=== PATIENT | female | born 1980 | race Caucasian/White ===

== ENCOUNTER 2017-06-08 05:17 | Inpatient (IN) | payer OTHER, BC ==
[2017-06-08] VITALS (20 sets, daily range): BP systolic 67–129; BP diastolic 53–77; Ht 175.3 cm; Wt 113.4 kg
[~2017-06-08] VITALS: Ht 175.3 cm; Wt 113.4 kg
[~2017-06-08 05:17] MED LIST: ACE3 PO; CEP500 PO; IBU800 PO
[2017-06-08] MEDS ORDERED: cefOXitin/DEX(*) 2GM/50ML PREM 50 ML IVPB ONE (05:20)
[2017-06-08] MEDS ORDERED: FAMOTIDINE 20 MG/50 ML PREMIX IVPB ONE (05:20)
[2017-06-08] MEDS ORDERED: METOCLOPRAMIDE 10 MG/2 ML SDV IVP ONE (05:20)
[2017-06-08] MEDS ORDERED: PREN-127 PO (06:21)
[2017-06-08 06:36] LABS: PLATELET COUNT, AUTOMATED 202 K/uL (150-450)
[2017-06-08] MEDS: LR(*) 1000 ML BAG 1,000 ML IV SCH ×2 (07:04→07:19)
[2017-06-08] MEDS ORDERED: fentaNYL CITR 100 MCG/2 ML AMP ONE (07:28)
[2017-06-08] MEDS ORDERED: OXYTOCIN 10 UNIT/ML SDV ONE ×2 (07:28)
[2017-06-08] MEDS ORDERED: MORPHINE PF 5 MG/10 ML AMP ONE (07:28)
[2017-06-08] MEDS ORDERED: ONDANSETRON 4 MG/2 ML VIAL ONE (07:29)
[2017-06-08] MEDS ORDERED: KETOROLAC 30 MG/ML VIAL ONE (07:29)
[2017-06-08] MEDS ORDERED: ePHEDrine 25 MG/5 ML DISP.SYR IVP ONE (08:56)
[2017-06-08] MEDS ORDERED: PHENYLEPHRINE/NS/PF 0.4MG/10ML ONE (08:56)
--- NOTE | 2017-06-08 09:17 | History & Physical ---
History of Present Illness Age of Patient: 36 : 4 Para or TPAL: 3 EDC per LMP: Jun 12, 2017 Estimated Gestational Age: 41 Chief Complaint Repeat C/S History of Present Illness Presents for scheduled c/s. History of c/s due to breech her past . This one was thinking of TOLAC but her cervix never really became favorable. She ultimately decided on planned . uncomplicated. Past Medical, Surgical, Family and Obstetric Histories reviewed. Please see [facility] chart. History Allergies: Coded Allergies: No Known Drug Allergies (Unverified , 08/14/11) Med Rec Home Meds Reported Medications Vits W-Ca,Fe,Fa(<1MG) ( VITAMINS) 1 Each Tablet, 1 EACH PO DAILY, TAB 06/08/17 Acetaminophen/Codeine (Tylenol #3 300-30 Mg) 1 Ea Tab, 2 EA PO Q4H Y, #30 TAB 1-2 TABLETS by mouth every 4 hours as needed for pain. Take with food. 08/05/11 Discontinued Reported Medications Cephalexin Monohydrate (Keflex) 500 Mg Cap, 500 MG PO QID, #20 08/14/11 Ibuprofen (Motrin) 800 Mg Tab, 800 MG PO Q8H, #30 TAB Take 1 tablet by mouth every 8 hours. Take with food. 08/05/11 Review of Systems All Systems Reviewed/Normal: Yes, Except as Noted Exam General Exam Vital Signs Vital Signs Date Time Temp Pulse Resp B/P (MAP) Pulse Ox O2 Delivery O2 Flow Rate FiO2 06/08/17 06:30 98.2 92 16 124/77 (93) 95 Room Air General Apperance: Alert/Awake/No Acute Distress Neuro: No Gross deficits Cardiovascular: Regular Rate and Rhythm Respiratory: No Respiratory Distress Abdomen: Soft, Non-Tender, Non-Distended, Gravid - Non-Tender Integumentary: Skin Intact without Lesions or Rash Psychological: Alert & Oriented X3, Appropriate Mood & Affect Fetus FHT Category: I Medical Decision Making Data Points Result Diagram: 06/08/17 0540 VTE Prophylasis: Adult Deep Vein Thrombosis/Pulmonary: No Pharmacological Contraindicati: Pt at Low Risk for VTE Mechanical Contraindications: Pt at Low Risk for VTE Assessment and Plan [employer]FFIC [employer]ER CABLE Plan: Routine Post-Op Care Problems: (1) Previous section Assessment & Plan: Planned repeat. Reviewed surgery and questions answered. BOSTON DAVIS MD Jun 08, 2017 09:17
[2017-06-08] MEDS ORDERED: OXYTOCIN 30 UNIT/D5LR 500 ML 500 ML IV PRN (09:24)
[2017-06-08] MEDS ORDERED: FAMOTIDINE(*) 20MG/50ML PREMIX 50 ML IVPB PRN (09:24)
--- NOTE | 2017-06-08 09:24 | Post Operative Note ---
Operative Note - [employer] Operative Day Date: Jun 08, 2017 Time: 09:17 Physicians Surgeon: Nahomi Anesthesia: Spinal Diagnosis Pre-Op Diagnosis: Previous c/s TIUP Post-Op Diagnosis: same Procedure Findings: vtx Apgars 9,9 wt 3534gms Procedure(s): RLTCS Specimen Removed:(Maybe N/A): dict #[id number] Complications: none Fluids Fluids: 2500 Estimated Blood Loss: 500 Dictated Date OP Note Dictated: Jun 08, 2017 Time OP Note Dictated: 09:19 Copies to: BOSTON DAVIS MD, TRAVIS MD Jun 08, 2017 09:24
[2017-06-08] MEDS ORDERED: METOCLOPRAMIDE 10 MG/2 ML SDV IVP PRN (09:25)
[2017-06-08] MEDS ORDERED: PROMETHAZINE 25 MG/ML 1 ML AMP IVP PRN (09:25)
[2017-06-08] MEDS ORDERED: FLUSH 10 ML SYR IVP PRN (09:25)
[2017-06-08] MEDS ORDERED: LANOLIN OINT 7 GM TUBE TP PRN (09:25)
[2017-06-08] MEDS ORDERED: ONDANSETRON 4 MG/2 ML VIAL IVP PRN (09:25)
[2017-06-08] MEDS ORDERED: diphenhydrAMINE 25 MG CAP PO PRN (09:50)
[2017-06-08] MEDS ORDERED: NALOXONE HCL 0.4 MG/ML VIAL IVP PRN (09:50)
--- NOTE | 2017-06-08 09:50 | Anesthesia OB Pre-Anes Eval ---
History of Present Illness Anesthesia Start Date: Jun 08, 2017 Anesthesia Start Time: 07:35 OB Anesthesia Diagnosis: repeat c/section Current Complication: obesity Complications: None known EDC: Jun 12, 2017 : 4 Para: 3 Vital Signs: Vital Signs Date Time Temp Pulse Resp B/P (MAP) Pulse Ox O2 Delivery O2 Flow Rate FiO2 06/08/17 09:29 97.6 24 101/64 (76) 92 Room Air 06/08/17 09:24 86 Pain Ratin Heart Tones: WNL Result Diagram: 06/08/17 0540 Height (Inches): 69.00 Weight (Pounds): 250 BMI Calculated: 36.91 Past Medical History Medical History: no pertinent history Surgical History: appendectomy, Previous Anesthesia: general, epidural Attended Childbirth Classes?: No Hx Anesthesia Reactions: No Hx Family Anesthesia Reaction: No Home Meds Reported Medications Vits W-Ca,Fe,Fa(<1MG) ( VITAMINS) 1 Each Tablet, 1 EACH PO DAILY, TAB 06/08/17 Acetaminophen/Codeine (Tylenol #3 300-30 Mg) 1 Ea Tab, 2 EA PO Q4H Y, #30 TAB 1-2 TABLETS by mouth every 4 hours as needed for pain. Take with food. 08/05/11 Discontinued Reported Medications Cephalexin Monohydrate (Keflex) 500 Mg Cap, 500 MG PO QID, #20 08/14/11 Ibuprofen (Motrin) 800 Mg Tab, 800 MG PO Q8H, #30 TAB Take 1 tablet by mouth every 8 hours. Take with food. 08/05/11 Allergies: Coded Allergies: No Known Drug Allergies (Unverified , 08/14/11) Anesthesia OB ROS Neurological: No migraines/headaches, No seizures, No neuropathy Eyes ROS: contacts in Contacts Statement: Patient agrees to continued use of contacts if general anesthesia is required. ENT: Denies Tooth caps, Denies Loose teeth, Denies Chipped teeth, Denies Dentures, Denies Bridges, Denies Retainers, Denies Veneers, Denies Implants, Denies Tongue ring, Other Pulmonary: No asthma, No smoker (pks/day/yrs) Airway Class: ll Cardiovascular ROS: No edema, No arrhythmia GI ROS: clear liquids Last Solids Date: Jun 07, 2017 Last Solids Time: 17:00 ROS: No Herpes, No STD(s), No Liver Disease, No Renal Disease Endocrine ROS: No diabetes, No gestational diabetes, No thyroid disorder Musculoskeletal ROS: No low back pain, No low back injury, No scoliosis ASA Classification: 2 Assessment and Plan Anesthesia Plan: SAB Assessment Past Medical, Surgical, Family and Obstetric Histories reviewed. Please see [facility] [place] chart. Spinal block risks and benefits explained to patient's satisfaction. General anesthesia risks and benefits explained to patient's satisfaction. Questions invited, none asked. Anesthesia Stop Day: Jun 08, 2017 Anesthesia Stop Time: 09:20 ROMMEL YANEZ CRNA Jun 08, 2017 09:50
[2017-06-08] MEDS: DLR(*) 1000 ML BAG 1,000 ML IV PRN ×2 (11:15→18:00)
--- NOTE | 2017-06-08 12:16 | OPERATIVE REPORT 1 ---
EVENT DATE: June 08, 2017 SURGEON: Anibal Comer MD ANESTHESIA: Spinal, Carmella Navarrete CRNA PREOPERATIVE DIAGNOSES 1. Previous section x 1. 2. Term intrauterine at 39 weeks. POSTOPERATIVE DIAGNOSES 1. Previous section x 1. 2. Term intrauterine at 39 weeks. PROCEDURE PERFORMED Repeat low transverse section via Pfannenstiel skin incision. ESTIMATED BLOOD LOSS 500 mL. FLUIDS 2500 mL IV crystalloid. URINE OUTPUT 50 mL. FINDINGS Female , cephalic left occiput anterior position. Apgars 9 and 9. Weight 3534 grams. PROCEDURE IN DETAIL The patient was brought to the operating room. Spinal anesthetic was placed. She was placed in the dorsal supine position with a leftward tilt and prepped and draped in the usual sterile fashion. A Pfannenstiel skin incision was then made and carried through to the underlying rectus fascia. This was nicked in the midline and extended laterally with Yen scissors. The rectus muscles were dissected off using sharp dissection and with the Bovie. Rectus muscles were in the midline. The peritoneum was entered sharply with Metzenbaum scissors. The incision was extended superiorly and inferiorly, taking care to avoid injury to the underlying bladder. It was put on lateral stretch. Bladder blade was inserted, exposing the lower uterine segment of the uterus. Vesicouterine peritoneum was entered sharply and extended laterally with Metzenbaum scissors. This ultimately exposed the lower uterine segment of the uterus. It received a low transverse incision with a scalpel and carried through to the intra-amniotic space. There was clear fluid upon amniotomy. It was put on lateral stretch. A hand was inserted. The 's head was elevated to the incision and fundal pressure was applied. 's head delivered atraumatically. Mouth and nose were bulb suctioned. Further fundal pressure effected delivery of the anterior and the posterior shoulder, and the remainder of the followed without difficulty. Mouth and nose were again bulb suctioned. The cord was clamped, cut, and the was passed to the waiting resuscitation team. Cord sample was obtained. The placenta was delivered manually. Uterus was exteriorized and cleared of all clots and debris. Luong clamps were placed for hemostasis while the uterine repair was performed with a #1 Monocryl and a running locking stitch. Second suture of the same type was used to imbricate the first layer, completing a two-layer closure. This was hemostatic upon completion. Posterior cul-de-sac was irrigated, swept clear of clots and debris. Uterus was returned to the abdomen , and bilateral pelvic gutters were irrigated and swept clear of clots and debris. The parietal peritoneum was repaired using a 3-0 Vicryl in a running non-locking stitch. Rectus muscles were reapproximated in the midline with the same stitch. Capillary bleeders were cauterized. Muscle bellies were irrigated and blotted dry. The rectus fascia was repaired using an #0-Vicryl in a running non-locking stitch. Subcuticular space was then irrigated and swept clear of clots and debris. Cautery was applied for hemostasis. Subcuticular space was closed with a 3-0 Vicryl Plus in a running non- locking stitch. Skin was closed with a 4-0 Monocryl simple subdermal stitch and covered with Dermabond skin adhesive. She tolerated the procedure well. Sponge, lap, needle and instrument counts were all correct x 3. She was taken to recovery in stable condition. ALLYSON
[2017-06-08] MEDS: NALBUPHINE HCL 10 MG/ML AMP IVP PRN ×2 (12:27→15:16)
[2017-06-08] MEDS: SIMETHICONE 80 MG CHEW CHEW SCH ×3 (13:30→20:08)
[2017-06-08] MEDS: KETOROLAC 30 MG/ML VIAL IVP SCH ×2 (13:54→20:07)
[2017-06-08] MEDS: FAMOTIDINE 20 MG TAB PO SCH (20:08)
[2017-06-08] MEDS: DOCUSATE CALCIUM 240 MG CAP PO SCH (20:08)
[2017-06-09] MEDS: KETOROLAC 30 MG/ML VIAL IVP SCH (02:06)
[2017-06-09 04:30] VITALS: BP 111/73
--- NOTE | 2017-06-09 07:18 | OB/GYN Progress Note ---
OB Subjective Progress Notes Subjective Pain controlled, Tolerating diet and activity. Baby . Normal lochia. GI: POS Flatus, NEG Nausea, NEG Vomiting Pain: Mild OB Objective Physical Exam Vital Signs Date Time Temp Pulse Resp B/P (MAP) Pulse Ox O2 Delivery O2 Flow Rate FiO2 06/09/17 04:30 97.9 71 16 111/73 (86) 94 Room Air General Appearance: Alert/Awake/No Acute Distress Neurological: No Gross deficits Cardiovascular: Regular Rate and Rhythm Respiratory: No Respiratory Distress, Clear to Auscultation Abdomen: Fundus Firm Incision: Clean, Dry, Intact, Dermabond Extremities: No Edema Integumentary: Skin Intact without Lesions or Rash Psychological: Alert & Oriented X3, Appropriate Mood & Affect Result Diagram: 06/08/17 0540 Assessment and Plan Problems: (1) Previous section (2) care following delivery Assessment & Plan: Pain controlled, Tolerating diet and activity. Baby . Normal lochia. EDIE MEADE MD Jun 09, 2017 07:18
[2017-06-09 07:30] VITALS: BP 105/63
[2017-06-09] MEDS: FAMOTIDINE 20 MG TAB PO SCH ×2 (07:49→20:36)
[2017-06-09 07:50] LABS: PLATELET COUNT, AUTOMATED 143 K/uL (150-450)
[2017-06-09] MEDS: DOCUSATE CALCIUM 240 MG CAP PO SCH ×2 (07:50→20:36)
[2017-06-09] MEDS: SIMETHICONE 80 MG CHEW CHEW SCH ×4 (07:50→20:36)
[2017-06-09] MEDS: IBUPROFEN 800 MG TAB PO SCH ×3 (07:50→22:49)
--- NOTE | 2017-06-09 08:16 | OB/GYN Progress Note ---
OB Subjective Progress Notes Subjective Doing well. Pain controlled and martinez and IV out. Has not ambulated yet. GI: NEG Nausea : Voiding Well Pain: Mild OB Objective Physical Exam Vital Signs Date Time Temp Pulse Resp B/P (MAP) Pulse Ox O2 Delivery O2 Flow Rate FiO2 06/09/17 04:30 97.9 71 16 111/73 (86) 94 Room Air General Appearance: Alert/Awake/No Acute Distress Neurological: No Gross deficits Cardiovascular: Normal Rhythm & Peripheral Pulses, Regular Rate and Rhythm Respiratory: No Respiratory Distress, Clear to Auscultation Abdomen: Soft, Non-Tender, Non-Distended, Fundus Firm Incision: Clean, Dry, Intact, Dermabond Extremities: No Edema Integumentary: Skin Intact without Lesions or Rash Psychological: Alert & Oriented X3, Appropriate Mood & Affect Result Diagram: 06/09/17 0745 Assessment and Plan [facility] Plan: Routine Post-Op Care, Discharge Home Tomorrow Problems: (1) Previous section (2) care following delivery BOSTON DAVIS MD Jun 09, 2017 08:16
[2017-06-09] MEDS ORDERED: IBUP800T37 PO (08:18)
[2017-06-09] MEDS ORDERED: LOR5/325 PO (08:18)
--- NOTE | 2017-06-09 08:21 | OB/GYN Discharge Summary ---
Discharge Summary Reason for Hosp/Final Diag: (1) Previous section (2) care following delivery Lates Vital Signs Vital Signs Date Time Temp Pulse Resp B/P (MAP) Pulse Ox O2 Delivery O2 Flow Rate FiO2 06/09/17 04:30 97.9 71 16 111/73 (86) 94 Room Air Weight (Pounds): 250 Result Diagram: 06/09/17 0745 Condition: Improved Discharge: Home, Self Prison Meds Active Scripts Hydrocodone Bit/Acetaminophen (HYDROCODON-ACETAMINOPHEN 5-325) 1 Each Tablet, 1- 2 EACH PO Q4H Y for PAIN, #30 TAB 0 Refills Prov:ANIBAL COMER MD 06/09/17 Reported Medications Vits W-Ca,Fe,Fa(<1MG) ( VITAMINS) 1 Each Tablet, 1 EACH PO DAILY, TAB 06/08/17 Acetaminophen/Codeine (Tylenol #3 300-30 Mg) 1 Ea Tab, 2 EA PO Q4H Y, #30 TAB 1-2 TABLETS by mouth every 4 hours as needed for pain. Take with food. 08/05/11 Discontinued Reported Medications Cephalexin Monohydrate (Keflex) 500 Mg Cap, 500 MG PO QID, #20 08/14/11 Ibuprofen (Motrin) 800 Mg Tab, 800 MG PO Q8H, #30 TAB Take 1 tablet by mouth every 8 hours. Take with food. 08/05/11 Follow up Referrals: DESIGN TECH DESIGN TECH - In Two Weeks @ [facility] with Anibal Comer Md Follow up with: Dr. Comer [phone] Follow up in: 2 wks PO Discharge Diet: As Tolerates Discharge Activity: As Tolerates, No Heavy Lifting x 6 wks, No Heavy Lifting > 10lb, Pelvic Rest Copies to: ANIBAL COMER MD, TRAVIS MD Jun 09, 2017 08:19
[2017-06-09] MEDS ORDERED: INFLUENZA VIRUS VAC 0.5 ML SYR IM ONLY ONE (09:25)
[2017-06-09] MEDS: APAP/HYDROCODONE 325/5 TAB PO PRN ×3 (11:22→19:37)
[2017-06-09 11:55] VITALS: BP 96/53
--- NOTE | 2017-06-09 14:34 | Anesthesia Post Eval Note ---
Anesthesia Post Eval Note Vital Signs Date Time Temp Pulse Resp B/P (MAP) Pulse Ox O2 Delivery O2 Flow Rate FiO2 06/09/17 11:55 98.4 77 18 96/53 (67) 96 Room Air Pt able to participate in Eval: Yes Cardiovascular Status: Satisfactory Respiratory Status: Satisfactory Pain Managment: Satisfactory PO Nausea/Vomiting: Satisfactory Temperature Management: Satisfactory Mental Status: Satisfactory, Alert, Oriented X3 Post-Op Hydration Status: Satisfactory, Tolerating PO Well, Voiding w/o Difficulty Anesthesia Type: SAB Anesthesia Tolerance: Tolerated procedure well without apparent anesthetic complications. LP site clear, no redness or edema. Denies headache or any residual paresthesia. Vital Signs Stable, Patient comfortable and condition stable. ROMMEL YANEZ CRNA Jun 09, 2017 14:34
[2017-06-09 19:30] VITALS: BP 119/70
--- NOTE | 2017-06-10 07:15 | OB/GYN Progress Note ---
OB Subjective Progress Notes Subjective Pain controlled, Tolerating diet and activity. Baby . Normal lochia. GI: POS Flatus, NEG Nausea, NEG Vomiting : Voiding Well Pain: Mild OB Objective Physical Exam Vital Signs Date Time Temp Pulse Resp B/P (MAP) Pulse Ox O2 Delivery O2 Flow Rate FiO2 06/09/17 23:00 17 Room Air 06/09/17 19:40 98.7 06/09/17 19:30 79 119/70 (86) 95 General Appearance: Alert/Awake/No Acute Distress Neurological: No Gross deficits Cardiovascular: Normal Rhythm & Peripheral Pulses, Regular Rate and Rhythm Respiratory: No Respiratory Distress, Clear to Auscultation Abdomen: Soft, Non-Tender, Non-Distended, Bowel Sounds Present, Fundus Firm Incision: Clean, Dry, Intact, Dermabond Extremities: No Edema Integumentary: Skin Intact without Lesions or Rash Psychological: Alert & Oriented X3, Appropriate Mood & Affect Result Diagram: 06/09/17 0745 Assessment and Plan Problems: (1) Previous section (2) care following delivery Assessment & Plan: Pain controlled, Tolerating diet and activity. Baby . Normal lochia. EDIE MEADE MD Jun 10, 2017 07:15
[2017-06-10] MEDS: FAMOTIDINE 20 MG TAB PO SCH (08:18)
[2017-06-10] MEDS: DOCUSATE CALCIUM 240 MG CAP PO SCH (08:18)
[2017-06-10] MEDS: SIMETHICONE 80 MG CHEW CHEW SCH (08:18)
[2017-06-10] MEDS: IBUPROFEN 800 MG TAB PO SCH (08:18)
[2017-06-10 08:30] VITALS: BP 109/77
== END 2017-06-10 11:55 | disposition home or self-care (01) | DRG 766 ==
LOC: OB 05:17
PROVIDERS: ADMIT Obstetrics & Gynecology; ATTEND Obstetrics & Gynecology
PROC: 10D00Z1 Extraction of Products of Conception, Low, Open Approach (ICD-10-PCS; principal; 2017-06-08 07:30)
DX: O34.211 Maternal care for low transverse scar from previous cesarean delivery (principal); O99.214 Obesity complicating childbirth; E66.9 Obesity, unspecified; Z68.36 Body mass index [BMI] 36.0-36.9, adult; Z3A.39 39 weeks gestation of pregnancy; Z37.0 Single live birth
CPT/HCPCS: 36415; 59025; 85025; 86850; 86900; 86901; J0694; J1885; J2270; J2300; J2370; J2405; J2590; J2765; J3010; J3490; J7120

== ENCOUNTER 2017-06-16 22:33 | Emergency (ER) | payer OTHER, BC ==
[2017-06-08 06:30] VITALS: Wt 113.4 kg
[~2017-06-16 22:33] MED LIST changes: +IBUP800T37 PO; +LOR5/325 PO; +PREN-127 PO
--- NOTE | 2017-06-16 22:45 | ER Report ---
History and Physical Time Seen By MD: 22:44 Hx. of Stated Complaint: SOB WHEN LAYING DOWN. FEELS BETTER WHEN SITTING OR STANDING HPI/ROS CHIEF COMPLAINT: Difficulty breathing when lying supine HISTORY OF PRESENT ILLNESS: 36-year-old female who is one week post delivery of her 2nd child. She states with this . She's had more edema than she had with her 1st . It is not resolved. Now she is having trouble laying supine. She notes she has difficulty breathing and orthopnea. She feels her veins in her neck or distended. She states she is unable to sleep because she short of breath. She notes no fever. She's had no productive cough. She's had leg swelling throughout her . She notes no calf tenderness. Patient states she is breast-feeding. REVIEW OF SYSTEMS: Respiratory: As above Cardiovascular: No chest pain, no palpitations. Gastrointestinal: No vomiting, no abdominal pain. Musculoskeletal: No back pain. Allergies: Coded Allergies: No Known Drug Allergies (Unverified , 06/16/17) Home Meds Active Scripts Hydrochlorothiazide (HYDROCHLOROTHIAZIDE) 12.5 Mg Tablet, 1 TAB PO QDAY Y for leg swelling, #30 TAB Prov:NAVA MCINTYRE DO 06/17/17 Ibuprofen (IBUPROFEN) 800 Mg Tablet, 800 MG PO Q8H Y for PAIN, #30 TAB 0 Refills Prov:BOSTON DAVIS MD 06/09/17 Hydrocodone Bit/Acetaminophen (HYDROCODON-ACETAMINOPHEN 5-325) 1 Each Tablet, 1- 2 EACH PO Q4H Y for PAIN, #30 TAB 0 Refills Prov:BOSTON DAVIS MD 06/09/17 Reported Medications Vits W-Ca,Fe,Fa(<1MG) ( VITAMINS) 1 Each Tablet, 1 EACH PO DAILY, TAB 06/08/17 Acetaminophen/Codeine (Tylenol #3 300-30 Mg) 1 Ea Tab, 2 EA PO Q4H Y, #30 TAB 1-2 TABLETS by mouth every 4 hours as needed for pain. Take with food. 08/05/11 Past Medical/Surgical History Recent delivery Reviewed Nurses Notes: Yes Old Medical Records Reviewed: Yes Hx Smoking: No Smoking Status: Never Smoker Hx Substance Use Disorder: No Hx Alcohol Use: No Constitutional Vital Sign - Last 24 Hours 06/16/17 06/16/17 06/16/17/8/18 22:39 22:40 22:48 23:00 Temp 98.2 Pulse 54 53 Resp 18 B/P (MAP) 149/94 149/94 (112) 146/80 (102) Pulse Ox 97 96 O2 Delivery Room Air 06/16/17 06/16/17 06/16/17 06/17/17 23:18 23:33 23:48 00:02 Pulse 50 52 50 Resp 8 22 B/P (MAP) 137/86 (103) Pulse Ox 94 95 96 06/17/17 06/17/17 06/17/17 06/17/17 00:03 00:18 00:23 00:38 Pulse 49 62 75 ??? Resp 18 15 20 Pulse Ox 95 95 93 06/17/17 06/17/17 06/17/17 06/17/17 00:53 00:54 00:56 01:00 Pulse ??? B/P (MAP) 149/91 (110) 133/78 (96) 132/77 (95) 06/17/17 06/17/17 06/17/17 01:08 01:23 01:30 Pulse ? B/P (MAP) 151/89 (109) Physical Exam Vital signs stable, afebrile, pulse ox normal General Appearance: The patient is alert, has no immediate need for airway protection and no current signs of toxicity. No acute distress HEENT: Pupils equal and round no injection. TMs normal, oropharynx without redness or exudate, mucous. Membranes are moist Respiratory: Chest is non tender, lungs are clear to auscultation. No wheezing or rails Cardiac: regular rate and rhythm Gastrointestinal: Abdomen is soft and non tender, no masses, bowel sounds normal. Musculoskeletal: Neck: Neck is supple and non tender. No lymphadenopathy Extremities have full range of motion and are non tender. 2+ edema bilaterally Skin: No rashes or lesions. DIFFERENTIAL DIAGNOSIS: After history and physical exam differential diagnosis was considered for shortness of breath including but not limited to pulmonary infectious process, COPD, asthma, pulmonary embolus and congestive heart failure. Medical Decision Making Data Points Result Diagram: 06/16/17 1492 06/16/17 2332 Laboratory Hematology Test 06/16/17 23:32 06/17/17 00:57 Red Blood Count 3.97 M/uL (4.17-5.56) Mean Corpuscular Volume 88.5 fL (80.0-96.0) Mean Corpuscular Hemoglobin 29.9 pg (26.0-33.0) Mean Corpuscular Hemoglobin Concent 33.8 g/dL (32.0-36.0) Red Cell Distribution Width 13.9 % (11.5-14.5) Mean Platelet Volume 7.6 fL (7.2-11.1) Neutrophils (%) (Auto) 73.1 % (39.4-72.5) Lymphocytes (%) (Auto) 14.8 % (17.6-49.6) Monocytes (%) (Auto) 8.5 % (4.1-12.4) Eosinophils (%) (Auto) 2.7 % (0.4-6.7) Basophils (%) (Auto) 0.9 % (0.3-1.4) Nucleated RBC Relative Count (auto) 0.0 /100WBC Neutrophils # (Auto) 6.1 K/uL (2.0-7.4) Lymphocytes # (Auto) 1.2 K/uL (1.3-3.6) Monocytes # (Auto) 0.7 K/uL (0.3-1.0) Eosinophils # (Auto) 0.2 K/uL (0.0-0.5) Basophils # (Auto) 0.1 K/uL (0.0-0.1) Nucleated RBC Absolute Count (auto) 0.00 K/uL D-Dimer Quantitative (PE/DVT) 14.01 ug/ml (0-0.50) Sodium Level 140 mmol/L (137-145) Potassium Level 3.8 mmol/L (3.5-5.0) Chloride Level 106 mmol/L (98-107) Carbon Dioxide Level 22 mmol/L (22-31) Blood Urea Nitrogen 16 mg/dl (7-18) Creatinine 0.90 mg/dl (0.52-1.04) Glomerular Filtration Rate Calc > 60.0 Random Glucose 91 mg/dl (75-110) Calcium Level 9.0 mg/dl (8.4-10.2) Total Bilirubin 0.3 mg/dl (0.2-1.3) Aspartate Amino Transf (AST/SGOT) 13 U/L (0-35) Alanine Aminotransferase (ALT/SGPT) 55 U/L (0-56) Alkaline Phosphatase 88 U/L (0-126) Troponin I < 0.012 ng/ml B-Type Natriuretic Peptide 454 pg/ml (0-100) Total Protein 6.5 gm/dl (6.3-8.2) Albumin 3.2 g/dl (3.5-5.0) Urine Color Straw Urine Clarity Clear Urine pH 6.0 pH (4.8-9.5) Urine Specific [place] 1.012 Urine Protein Negative mg/dL (NEGATIVE) Urine Glucose (UA) Negative mg/dL (NEGATIVE) Urine Ketones Negative mg/dL (NEGATIVE) Urine Blood Moderate (NEGATIVE) Urine Nitrite Negative (NEGATIVE) Urine Bilirubin Negative (NEGATIVE) Urine Urobilinogen Negative mg/dL (0.2-1.9) Urine Leukocyte Esterase Negative (NEGATIVE) Urine RBC None /HPF (0-2/HPF) Urine WBC 2 /HPF (0-5/HPF) Urine Squamous Epithelial Cells Many /LPF (</=FEW) Urine Bacteria Negative /HPF (NONE-FEW) Urine Mucus None /HPF (NONE-FEW) Chemistry Test 06/16/17 23:32 06/17/17 00:57 White Blood Count 8.3 k/uL (4.5-11.0) Red Blood Count 3.97 M/uL (4.17-5.56) Hemoglobin 11.9 g/dL (12.0-16.0) Hematocrit 35.2 % (34.0-47.0) Mean Corpuscular Volume 88.5 fL (80.0-96.0) Mean Corpuscular Hemoglobin 29.9 pg (26.0-33.0) Mean Corpuscular Hemoglobin Concent 33.8 g/dL (32.0-36.0) Red Cell Distribution Width 13.9 % (11.5-14.5) Platelet Count 216 K/uL (150-450) Mean Platelet Volume 7.6 fL (7.2-11.1) Neutrophils (%) (Auto) 73.1 % (39.4-72.5) Lymphocytes (%) (Auto) 14.8 % (17.6-49.6) Monocytes (%) (Auto) 8.5 % (4.1-12.4) Eosinophils (%) (Auto) 2.7 % (0.4-6.7) Basophils (%) (Auto) 0.9 % (0.3-1.4) Nucleated RBC Relative Count (auto) 0.0 /100WBC Neutrophils # (Auto) 6.1 K/uL (2.0-7.4) Lymphocytes # (Auto) 1.2 K/uL (1.3-3.6) Monocytes # (Auto) 0.7 K/uL (0.3-1.0) Eosinophils # (Auto) 0.2 K/uL (0.0-0.5) Basophils # (Auto) 0.1 K/uL (0.0-0.1) Nucleated RBC Absolute Count (auto) 0.00 K/uL D-Dimer Quantitative (PE/DVT) 14.01 ug/ml (0-0.50) Glomerular Filtration Rate Calc > 60.0 Calcium Level 9.0 mg/dl (8.4-10.2) Total Bilirubin 0.3 mg/dl (0.2-1.3) Aspartate Amino Transf (AST/SGOT) 13 U/L (0-35) Alanine Aminotransferase (ALT/SGPT) 55 U/L (0-56) Alkaline Phosphatase 88 U/L (0-126) Troponin I < 0.012 ng/ml B-Type Natriuretic Peptide 454 pg/ml (0-100) Total Protein 6.5 gm/dl (6.3-8.2) Albumin 3.2 g/dl (3.5-5.0) Urine Color Straw Urine Clarity Clear Urine pH 6.0 pH (4.8-9.5) Urine Specific [place] 1.012 Urine Protein Negative mg/dL (NEGATIVE) Urine Glucose (UA) Negative mg/dL (NEGATIVE) Urine Ketones Negative mg/dL (NEGATIVE) Urine Blood Moderate (NEGATIVE) Urine Nitrite Negative (NEGATIVE) Urine Bilirubin Negative (NEGATIVE) Urine Urobilinogen Negative mg/dL (0.2-1.9) Urine Leukocyte Esterase Negative (NEGATIVE) Urine RBC None /HPF (0-2/HPF) Urine WBC 2 /HPF (0-5/HPF) Urine Squamous Epithelial Cells Many /LPF (</=FEW) Urine Bacteria Negative /HPF (NONE-FEW) Urine Mucus None /HPF (NONE-FEW) Coagulation Test 06/16/17 23:32 D-Dimer Quantitative (PE/DVT) 14.01 ug/ml Urinalysis Test 06/17/17 00:57 Urine Color Straw Urine Clarity Clear Urine pH 6.0 pH (4.8-9.5) Urine Specific [place] 1.012 Urine Protein Negative mg/dL (NEGATIVE) Urine Glucose (UA) Negative mg/dL (NEGATIVE) Urine Ketones Negative mg/dL (NEGATIVE) Urine Blood Moderate (NEGATIVE) Urine Nitrite Negative (NEGATIVE) Urine Bilirubin Negative (NEGATIVE) Urine Urobilinogen Negative mg/dL (0.2-1.9) Urine Leukocyte Esterase Negative (NEGATIVE) Urine RBC None /HPF (0-2/HPF) Urine WBC 2 /HPF (0-5/HPF) Urine Squamous Epithelial Cells Many /LPF (</=FEW) Urine Bacteria Negative /HPF (NONE-FEW) Urine Mucus None /HPF (NONE-FEW) EKG/Imaging EKG Interpretation 12 lead EK Rhythm: Marked sinus bradycardia, rate 47 bpm [place]: normal QRS: normal ST segments: normal, no evidence of ischemia or dysrhythmia Imaging Results: CT scan of the CTA pulmonary angiogram was obtained. The results of the study are CT angiogram of the chest: Indication: Dyspnea and elevated d-dimer. Technique: Helical CT was performed through the chest following IV contrast enhancement with 75 cc of Isovue 370. Multiplanar reconstructions and MIP images are reviewed. One of the following dose optimization techniques was utilized in the performance of this exam: Automated exposure control; adjustment of the mA and/ or kV according to the patient's size; or use of an iterative reconstruction technique. Specific details can be referenced in the facility's radiology CT exam operational policy. Comparison: None. Pulmonary arteries: There is uniform contrast enhancement. There are no signs of pulmonary emboli. Aorta and great vessels: Unremarkable, as visualized. There are no signs of aneurysm. Heart and pericardial soft tissues: Within normal limits. Mediastinal soft tissues: Unremarkable. Lung sun: There are minimal atelectatic opacities at the bases. No parenchymal consolidation or volume loss is identified. Pleural spaces: There is minimal fluid in the pleural spaces. There is no evidence of mass, calcification, or pneumothorax. Skeletal structures: There are mild degenerative changes in the spine. Upper abdomen: Unremarkable. IMPRESSION: No evidence of pulmonary emboli. The aorta appears unremarkable. There are minimal parenchymal opacities at the bases, consistent with atelectasis atelectasis. There are minimal pleural effusions. The study was read by the radiologist. I viewed the images myself on the PACS system. ED Course/Re-evaluation Clinical Indication for ER IV: IV Access ED Course Patient was admitted to an examination room. H&P was done. The differential diagnoses was considered. On clinical examination. Patient has edema and fluid retention. She's having orthopnea is unable lay down and breathe swallowing spine. A peripheral IV was established. Diagnostic studies were ordered. Her BNP is grossly elevated. Her d-dimer was 14. Worrisome for pulmonary embolism a pulmonary angiogram was ordered, which was unremarkable for evidence of pulmonary embolism. Patient will be put on low-dose hydrochlorothiazide 12.5 mg per day. She was given an initial dose of 25 mg here in the ER. She is advised one to 2 pills per day and follow-up with her OB /ORDERING BOX OPERATOR in 4-5 days. Decision to Disposition Date: Jun 17, 2017 Decision to Disposition Time: 01:36 Depart Departure Latest Vital Signs Vital Signs Date Time Temp Pulse Resp B/P (MAP) Pulse Ox O2 Delivery O2 Flow Rate FiO2 06/17/17 01:30 151/89 (109) 06/17/17 01:23 ??? 06/17/17 00:23 20 93 06/16/17 22:39 98.2 Room Air Impression: Primary Impression: Fluid overload Additional Impressions: Edema Status post Normal breast feeding Condition: Improved Disposition: HOME OR SELF-CARE New Scripts Hydrochlorothiazide (HYDROCHLOROTHIAZIDE) 12.5 Mg Tablet 1 TAB PO QDAY Y for leg swelling, #30 TAB Prov: NAVA MCINTYRE DO 06/17/17 Patient Instructions: Leg Edema (ED) Additional Instructions: Take hydrochlorothiazide 12.5 mg per day. You may take 2 tablets daily if there is no effect Follow-up with your ROUTE AGENT in 3-5 days if unimproved Problem Qualifiers Primary Impression: Fluid overload Hypervolemia type: unspecified Qualified Codes: E87.70 - Fluid overload, unspecified Additional Impressions: Edema Edema type: unspecified Qualified Codes: R60.9 - Edema, unspecified NAVA MCINTYRE DO Jun 16, 2017 22:44
[2017-06-16] MEDS ORDERED: NS(*) 0.9% 1000 ML BAG 1,000 ML IV ONE (22:49)
--- NOTE | 2017-06-16 23:02 | EKG ---
FACILITY: [facility] PATIENT NAME: MAHENDRA HORTON : [id number] MR: [id number] V: [id number] EXAM DATE: ORDERING PHYSICIAN: NAVA MCINTYRE TECHNOLOGIST: GLO Test Reason : DYSPNEA Blood Pressure : / mmHG Vent. Rate : 047 BPM Atrial Rate : 047 BPM P-R Int : 158 ms QRS Dur : 082 ms QT Int : 440 ms P-R-T Axes : 033 052 060 degrees QTc Int : 389 ms Marked sinus bradycardia Abnormal ECG No previous ECGs available Confirmed by PRINCE MCCABE ([id number]) on 06/17/2017 6:48:14 AM Referred By: Confirmed By:PRINCE MCCABE
[2017-06-16 23:46] LABS: PLATELET COUNT, AUTOMATED 216 K/uL (150-450)
[2017-06-17] MEDS ORDERED: IOPAMIDOL 76% 75 ML INFUS BTL 75 ML ONE (00:27)
[2017-06-17] MEDS ORDERED: NS 0.9% 150 ML BAG 150 ML ONE (00:27)
[2017-06-17 01:30] VITALS: BP 151/89
--- NOTE | 2017-06-17 01:32 | RADIOLOGY IMAGING REPORT ---
FACILITY: [facility] [place] PATIENT NAME: Rebeca Drew : 1980 MR: [id number] V: [id number] EXAM DATE: ORDERING PHYSICIAN: NAVA MCINTYRE TECHNOLOGIST: Location: [facility] Patient: Rebeca Drew : 1980 Visit/Account:[id number] Date of Sevice: 06/17/2017 CT angiogram of the chest: Indication: Dyspnea and elevated d-dimer. Technique: Helical CT was performed through the chest following IV contrast enhancement with 75 cc of Isovue 370. Multiplanar reconstructions and MIP images are reviewed. One of the following dose optimization techniques was utilized in the performance of this exam: Autom ated exposure control; adjustment of the mA and/or kV according to the patient's size; or use of an i terative reconstruction technique. Specific details can be referenced in the facility's radiology C T exam operational policy. Comparison: None. Pulmonary arteries: There is uniform contrast enhancement. There are no signs of pulmonary emboli. Aorta and great vessels: Unremarkable, as visualized. There are no signs of aneurysm. Heart and pericardial soft tissues: Within normal limits. Mediastinal soft tissues: Unremarkable. Lung sun: There are minimal atelectatic opacities at the bases. No parenchymal consolidation or vo lume loss is identified. Pleural spaces: There is minimal fluid in the pleural spaces. There is no evidence of mass, calcifica tion, or pneumothorax. Skeletal structures: There are mild degenerative changes in the spine. Upper abdomen: Unremarkable. IMPRESSION: No evidence of pulmonary emboli. The aorta appears unremarkable. There are minimal parenc hymal opacities at the bases, consistent with atelectasis atelectasis. There are minimal pleural effu sions. Report Dictated By: Sarwat Pittman MD at 06/17/2017 1:17 AM Report E-Signed By: Sarwat Pittman MD at 06/17/2017 1:28 AM WSN:[id number]
[2017-06-17] MEDS ORDERED: HYDR12.561 PO (01:40)
[2017-06-17] MEDS ORDERED: HYDROCHLOROTHIAZIDE 25 MG TAB PO ONE (01:45)
== END 2017-06-17 01:58 | disposition home or self-care (01) ==
LOC: ER 22:48
DX: E87.70 Fluid overload, unspecified (principal); R60.9 Edema, unspecified
CPT/HCPCS: 36415; 71275; 81001; 83880; 84484; 85025; 85379; 93005; 96360; 96361; 99284; J7030; Q9967; 82040; 82247; 82310; 82374; 82435; 82565; 82947; 84075; 84132; 84155; 84295; 84450; 84460; 84520